=== PATIENT | male | born 1985 | race Two or more races ===

== ENCOUNTER 2021-11-19 00:24 | Emergency (ER) | payer SELFPAY ==
[~2021-11-19] VITALS: Ht 165.1 cm; Wt 75.0 kg
[2021-11-19] MEDS ORDERED: HYDROmorphone HCL 2 MG/ML VL/or syr IV ONE ×2 (00:45→08:00)
[2021-11-19 08:46] VITALS: BP 140/105
[2021-11-20] MEDS ORDERED: IBUP800T26 PO (02:55)
== END 2021-11-19 09:22 | disposition short-term general hospital (02) ==
LOC: EDUNIT# 00:24 → ER 00:24 → EDBD 00:24 → ER 09:22
DX: T23.201A Burn of second degree of right hand, unspecified site, initial encounter (principal); T24.211A Burn of second degree of right thigh, initial encounter; X08.8XXA Exposure to other specified smoke, fire and flames, initial encounter; Y93.89 Activity, other specified; Y92.89 Other specified places as the place of occurrence of the external cause; Y99.8 Other external cause status
CPT/HCPCS: 96374; 96376; 99285; J1170

== ENCOUNTER 2021-11-19 23:54 | Emergency (ER) | payer SELFPAY ==
[~2021-11-19] VITALS: Ht 177.8 cm; Wt 91.0 kg
[2021-11-20] MEDS ORDERED: IBUP800T26 PO (02:55)
[2021-11-20] MEDS ORDERED: SILVER SULFADIAZINE 1 % TOPICAL CREAM 50GM TOP ONE (03:00)
[2021-11-20 03:10] VITALS: BP 156/104
[2021-11-20] MEDS ORDERED: IBUPROFEN 800 MG TAB PO ONE (03:15)
== END 2021-11-20 03:20 | disposition home or self-care (01) ==
LOC: ER 23:54
DX: T23.201D Burn of second degree of right hand, unspecified site, subsequent encounter (principal); T23.231D Burn of second degree of multiple right fingers (nail), not including thumb, subsequent encounter; X58.XXXD Exposure to other specified factors, subsequent encounter
CPT/HCPCS: 16020